=== PATIENT | female | born 1955 | race Caucasian/White ===

== ENCOUNTER 2019-09-08 12:26 | Emergency (ER) | payer SELFPAY ==
[~2019-09-08] VITALS: Ht 149.9 cm; Wt 78.0 kg
[2019-09-08] MEDS ORDERED: SODIUM CHLORIDE 0.9% 1,000 ML IV ONE (13:37)
[2019-09-08] MEDS ORDERED: ONDANSETRON HCL 4MG/2ML INJ IV STA (13:37)
[2019-09-08 14:20] LABS: BASOPHILS % 0.7 % (0.0-2.0); HEMATOCRIT. 36.4 % (36.0-48.0); HEMOGLOBIN. 12.3 g/dL (12.0-16.0); LYMPHOCYTES % 33.1 % (20.0-50.0); MEAN CORPUSCULAR HEMOGLOBIN 28.6 pg (28.0-32.0); MEAN PLATELET VOLUME 9.1 fl (7.4-10.4); MONOCYTES % 7.3 % (2.0-8.0); NEUTROPHILS % 56.9 % (40.0-76.0); PLATELET 236 x1000/uL (130-400); RED BLOOD CELL COUNT 4.28 mill/uL (4.2-5.4); RED CELL DISTRIBUTION WIDTH 13.9 % (11.6-14.6)
[2019-09-08 14:23] LABS: CLARITY URINE CLEAR (CLEAR); COLOR URINE YELLOW (YELLOW); KETONES URINE TRACE (NEGATIVE); LEUKOCYTE ESTERASE URINE NEGATIVE (NEGATIVE); NITRITE URINE NEGATIVE (NEGATIVE); OCCULT BLOOD URINE NEGATIVE (NEGATIVE); PROTEIN URINE NEGATIVE (NEGATIVE); SPECIFIC GRAVITY URINE 1.032 (1.005-1.030); UROBILINOGEN URINE 0.2 E.U./dL (0.2-1.0)
[2019-09-08 14:26] LABS: CHLORIDE 106 mEq/L (98-107)
[2019-09-08] MEDS ORDERED: IOHEXOL-300 100 ML BOTTLE ONE (17:20)
[2019-09-08 17:34] VITALS: BP 149/59
== END 2019-09-08 18:43 | disposition home or self-care (01) ==
LOC: ER 12:26
DX: R10.32 Left lower quadrant pain (principal); R10.12 Left upper quadrant pain; R50.9 Fever, unspecified; R11.2 Nausea with vomiting, unspecified; R19.7 Diarrhea, unspecified; E11.65 Type 2 diabetes mellitus with hyperglycemia; I10 Essential (primary) hypertension; Z90.49 Acquired absence of other specified parts of digestive tract; Z98.890 Other specified postprocedural states
CPT/HCPCS: 36415; 74177; 80053; 81003; 83690; 85025; 85610; 96361; 96374; 99284; J2405; J7030; Q9967

== ENCOUNTER 2023-11-18 18:24 | Emergency (ER) | payer MEDICAID ==
[~2023-11-18] VITALS: Ht 152.4 cm; Wt 72.0 kg
[2023-11-18 18:27] VITALS: BP 181/73; PULSE 77; RESP 20; TEMP 98.3; O2SAT 98
[2023-11-18] MEDS ORDERED: KETOROLAC 60MG/2ML VIAL IM ONE (19:15)
[2023-11-18] MEDS ORDERED: TOPUD MT (20:50)
[2023-11-18] MEDS ORDERED: LIDO700A15 TP (20:50)
[2023-11-18] MEDS ORDERED: IBUP-2028 MT (20:50)
== END 2023-11-18 21:18 | disposition home or self-care (01) ==
LOC: ER 18:24
DX: S02.2XXA Fracture of nasal bones, initial encounter for closed fracture (principal); S20.212A Contusion of left front wall of thorax, initial encounter; S80.01XA Contusion of right knee, initial encounter; E11.9 Type 2 diabetes mellitus without complications; I10 Essential (primary) hypertension; Z90.49 Acquired absence of other specified parts of digestive tract; W18.39XA Other fall on same level, initial encounter; Y93.89 Activity, other specified; Y92.89 Other specified places as the place of occurrence of the external cause; Y99.8 Other external cause status
CPT/HCPCS: 99285; 70450; 71101; 73562; 70486; 96372; J1885